=== PATIENT | male | born 1950 ===

== ENCOUNTER 2024-01-04 15:12 | Outpatient (AMB) | payer MEDICARE, SELFPAY ==
--- NOTE | 2024-01-04 15:15 | AM.OFFWIN_ITS ---
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 He reports this is a somewhat recurrent issue, for which he has been treated with prednisone and tramadol previously by primary care provider in [place]. He denies any numbness, tingling, weakness of the right hand or arm. He does believe perhaps the pain was instigated by a golf game or recent weightlifting on the machines at the gym, but he reports he is exercising regularly and does not endorse any new or strenuous activity. [facility] Social History Patient Tobacco Use Status: Current everyday Tobacco user Review of Systems Const Reports as per HPI, Reports body aches, Denies chills, Denies fatigue and Denies fever(s) Card Denies chest pain, Denies chest pain at rest, Denies chest pain with activity, Denies irregular heart rhythm, Denies leg edema, Denies lightheadedness, Denies dyspnea and Denies dyspnea on exertion Resp Denies dyspnea and Denies dyspnea on exertion Musc Reports as per HPI, Reports back pain, Denies joint swelling, Denies muscle weakness, Denies radiating pain into limb and Denies tingling Neuro Denies tingling Endo Denies fatigue Physical Exam Vital Signs: Last Vital Signs Pulse 62 01/04/24 15:16 BP 118/68 01/04/24 15:16 Pulse Ox 98 01/04/24 15:16 Oxygen Delivery Method Room Air 01/04/24 15:16 BMI result Body Mass Index 24.8 Const General: cooperative, healthy appearing and no acute distress Chest Chest palpation & inspection: normal inspection of the chest Resp Effort & Inspection: normal respiratory effort Cardio Peripheral pulses: brachial pulses present Back/Spine/Pelvis Cervical Spine: cervical ROM normal Thoracic/Lumbar Spine: thoracic and lumbar spine normal to inspection Back/spine/pelvis image: 2 1. noted spasm and mild edema over trap on right as indicated, moderated ttp Extrem General: Yes full ROM and Yes normal exam except as noted Assessment & Plan Assessment & Plan (1) Spasm of right trapezius muscle: Code(s): M62.830 - Muscle spasm of back Plan Patient reports he is seen by a primary care provider in [place], by whom he has been treated for this very similar complaint multiple times. Patient reports he generally receives a prednisone taper and tramadol. At this time I will initiate a prednisone taper for the inflammation, and trial baclofen, but do not feel this needs narcotic pain relief, given the patient has good range of motion and no acute tenderness to palpation on exam. Patient agrees to this plan, trial [id number] anti-inflammatory medications as needed, and heat for added pain relief. Medications: New 2 baclofen Take one to two tablet as needed for muscle spasm every 8 hours 5 mg PO TID PRN 20 tabs 0RF muscle spasm prednisone see taper instructions 10 mg PO DIRECTED 21 ea 0RF Coding Level of Care Code New Pt Level 3 (84277) Diagnoses Spasm of right trapezius muscle M62.830
[2024-01-04 15:16] VITALS: BP 118/68; PULSE 62; O2SAT 98; BMI 24.8
== END 2024-01-04 15:45 | disposition home or self-care (01) ==
PROVIDERS: PCP Internal Medicine; Visit Provider Emergency Medicine
DX: M62.830 Muscle spasm of back (principal)
CPT/HCPCS: 99203